=== PATIENT | female | born 1960 | race Caucasian/White ===

== ENCOUNTER 2019-01-03 10:44 | Observation (INO) | payer OTHER ==
--- NOTE | 2019-01-03 12:02 | ED ---
Shortness of Breath - HPI Summary HPI Summary: Patient is a 58 y/o F presenting to [facility] with complaints of SOB for the past three weeks with a recent exacerbation of her SOB. She states that exertion worsens her SOB. She also notes that she had "pain in my lungs" with inhalation. Patient went to be evaluated by a provider a few weeks ago. She was prescribed Abx and inhaler. Her pain is not as severe as initially, but SOB is worse. Swelling in legs are denied. She had travelled four hours from [place] to [place] yesterday, 01/02/19. Sx had started before this trip. PMHx of depression is noted. Patient had been started on lithium when Sx onset. She had stopped taking lithium yesterday, 01/02/19. Patient had two blood tests for her lithium levels which were noted to be WNL. In room, vitals are pulse 95, o2 99, BP 160/94. Home medications and allergies are reviewed. - History of Current Complaint Chief Complaint: EDShortnessOfBreath Time Seen by Provider: 01/03/19 11:39 Hx Obtained From: Patient Onset/Duration: Lasting Weeks, Still Present, Worse Since Dyspnea At: Exertion Aggravating Factors: Other - inhalation produces pain Associated Signs & Symptoms: Negative - Allergy/Home Medications Allergies/Adverse Reactions: Allergies Allergy/AdvReac Type Severity Reaction Status Date / Time No Known Allergies Allergy Verified 01/03/19 10:50 PMH/Surg Hx/FS Hx/Imm Hx Sensory History: Denies: Hx Legally Blind, Hx Deafness Opthamlomology History: Denies: Hx Legally Blind EENT History: Denies: Hx Deafness Psychiatric History: Reports: Hx Depression - Immunization History Date of Influenza Vaccine: 11/28/2018 Immunizations Up to Date: Yes Infectious Disease History: No Infectious Disease History: Denies: Traveled Outside the [place] in Last 30 Days - Family History Known Family History: Negative: Respiratory Disease - Social History Alcohol Use: Rare Substance Use Type: Reports: None Smoking Status (MU): Never Smoked Tobacco Review of Systems Respiratory: Other - "pain in my lungs" with inhalation Positive: Shortness Of Breath Negative: Edema All Other Systems Reviewed And Are Negative: Yes Physical Exam - Summary Physical Exam Summary: Appearance: The patient is well-nourished in no acute distress and in no acute pain. Skin: The skin is warm and dry, and skin color reflects adequate perfusion. HEENT: The head is normocephalic and atraumatic. The pupils are equal and reactive. The conjunctivae are clear and without drainage. Nares are patent and without drainage. Mouth reveals moist mucous membranes, and the throat is without erythema and exudate. The external ears are intact. The ear canals are patent and without drainage. The tympanic membranes are intact. Neck: The neck is supple with full range of motion and non-tender. There are no carotid bruits. There is no neck vein distension. Respiratory: Chest is non-tender. Lungs are clear to auscultation and breath sounds are symmetrical and equal. Cardiovascular: Heart is regular rate and rhythm. There is no murmur or rub auscultated. There is no peripheral edema and pulses are symmetrical and equal. Abdomen: The abdomen is soft and non-tender. There are normal bowel sounds heard in all four quadrants and there is no organomegaly palpated. Musculoskeletal: There is no back tenderness noted. Extremities are non-tender with full range of motion. There is good capillary refill. There is no peripheral edema or calf tenderness elicited. Neurological: Patient is alert and oriented to person, place and time. The patient has symmetrical motor strength in all four extremities. Cranial nerves are grossly intact. Deep tendon reflexes are symmetrical and equal in all four extremities. Psychiatric: The patient has an appropriate affect and does not exhibit any anxiety or depression. Triage Information Reviewed: Yes Vital Signs On Initial Exam: Initial Vitals Temp Pulse Resp BP Pulse Ox 98.1 F 112 16 154/108 92 01/03/19 10:47 01/03/19 10:47 01/03/19 10:47 01/03/19 10:47 01/03/19 10:47 Vital Signs Reviewed: Yes Procedures - Sedation Patient Received Moderate/Deep Sedation with Procedure: No Diagnostics - Vital Signs Vital Signs Temp Pulse Resp BP Pulse Ox 01/03/19 10:47 98.1 F 112 16 154/108 92 - Laboratory Result Diagrams: 01/03/19 12:07 01/03/19 12:07 Lab Statement: Any lab studies that have been ordered have been reviewed, and results considered in the medical decision making process. - CT CTA CHEST/THORAX CT Interpretation Completed By: Radiologist Summary of CT Findings: IMPRESSION: 1. MULTIPLE BILATERAL PULMONARY EMBOLI. 2. ECTASIA OF THE ASCENDING THORACIC AORTA.. THIS REPORT WAS REVIEWED BY DR. ZAMORA. - EKG 1235 Cardiac Rate: NL - rate of 96 BPM EKG Rhythm: Sinus Rhythm ST Segment: Normal Ectopy: None Summary of EKG Findings: EKG showed NSR with rate of 96 BPM, normal ST, no ectopy, no STEMI. This EKG was reviewed and interpreted by Dr. Zamora. Re-Evaluation - Re-Evaluation First Eval Re-Evaluation Time: 13:22 Comment: Results of bloodwork and CTA were discussed. Patient is agreeable with admission. Course/Dx - Course Course Of Treatment: Ms. Evans presented with a worrisome story for pulmonary embolism. A couple weeks ago she had some pleuritic chest pain with some mild shortness of breath. Over the last 2 weeks she has had a decrease in the pain but the shortness of breath has increased. Currently she feels fine when she is at rest but if she gets up and moves around she feels short of breath. She was nontoxic in appearance with stable vitals aside from borderline tachycardic. CTA of her chest did reveal bilateral pulmonary emboli and the hospitalist service was contacted for admission. She was bolused with heparin and a heparin drip was begun in the emergency department. - Diagnoses Provider Diagnoses: Multiple pulmonary emboli - Physician Notifications Discussed Care of Patient With: Demian Hoff Time Discussed With Above Provider: 13:41 Instructed by Provider To: Other - 1315 - Results of CTA were discussed over the phone with Dr. Rosas. 1341 - Patient's case was discussed with Dr. Hoff, Dr. Hoff accepts for admission - Critical Care Time Critical Care Time: 30-74 min - 30 minutes CCT Discharge ED - Sign-Out/Discharge Documenting (check all that apply): Patient Departure - admit - Discharge Plan Condition: Stable Disposition: ADMITTED TO [facility] - Billing Disposition and Condition Condition: STABLE Disposition: Admitted to [facility] - Attestation Statements Document Initiated by Scribe: Yes Documenting Scribe: MONO SAMAYOA Provider For Whom Scribe is Documenting (Include Credential): ETHEL ZAMORA MD Scribe Attestation: MONO Galaviz, scribed for ETHEL ZAMORA MD on 01/03/19 at 1554. Scribe Documentation Reviewed: Yes Provider Attestation: The documentation as recorded by the scribe, MONO SAMAYOA accurately reflects the service I personally performed and the decisions made by me, ETHEL ZAMORA MD Status of Scribe Document: Viewed
[2019-01-03 12:18] LABS: ABS Basophils 0.1 10^3/ul (0-0.2); ABS Eosinophils 0.3 10^3/ul (0-0.6); ABS Lymphocytes 2.4 10^3/ul (1.0-4.8); ABS Monocytes 0.5 10^3/ul (0-0.8); ABS Neutrophils 3.6 10^3/ul (1.5-7.7); Eosinophil % 4.7 %; Hematocrit 40 % (35-47); Hemoglobin 13.4 g/dL (12.0-16.0); Mean Corpuscular HGB Conc 34 g/dL (31-36); Mean Corpuscular Hemoglobin 29 pg (27-31); Mean Corpuscular Volume 86 fL (80-97); Platelet Count 277 10^3/uL (150-450); Red Blood Count 4.66 10^6 /uL (3.70-4.87); Red Cell Distribution Width 14 % (10-15); White Blood Count 6.9 10^3/uL (3.5-10.8)
[2019-01-03 12:37] LABS: Albumin 4.2 g/dL (3.2-5.2); Albumin/Globulin Ratio 1.4 (1-3); BUN/Creatinine Ratio 19.8 (8-20); C Reactive Protein 15.98 mg/L (<8.01); Calcium 9.5 mg/dL (8.6-10.3); EGFR African American 82.6 (>60); EGFR Non-African American 68.3 (>60); Globulin 3.1 g/dL (2-4); Potassium 4.2 mmol/L (3.5-5.0); Total Bilirubin 0.5 mg/dL (0.2-1.0); Total Protein 7.3 g/dL (6.4-8.9)
[2019-01-03] MEDS ORDERED: Iohexol 350* (CONTRAST) 500 ML MDV IV ONE (12:42)
[2019-01-03] MEDS ORDERED: Heparin DRIP 25,000 UNITS(*) 25,000 UNITS/500 ML BAG IV SCH (13:30)
[2019-01-03 14:30] LABS: INR 1.13 (0.82-1.09)
[2019-01-03] MEDS ORDERED: Acetaminophen TAB* 325 MG PO PRN (14:30)
--- NOTE | 2019-01-03 14:39 | ADMNOTE ---
Subjective Date of Service: 01/03/19 Interval History: HISTORY AND PHYSICAL EXAM: Allergies Allergy/AdvReac Type Severity Reaction Status Date / Time No Known Allergies Allergy Verified 01/03/19 10:50 Home medications: none HPI: The patient noticed SCHULTE about 3 weeks ago. She had been going to the gym several times a week but stopped 2 weeks ago. Her PMD prescribed an antibiotic and an inhaler without any benefit noted by the patient. She and her drove to [place] for [place] Parent's Weekend to see their daughter who is a freshman. The trip takes 4 hours. No other recent travel. She is alone at home and does some writing, sometimes sitting a long time. No cough, chest pain , leg pain or swelling. Family History: Unchanged from Admission - Both parents of dementia. One biologic sister who is [employer]. Social History: Unchanged from Admission - Lives with her who is her SDM. Smokes 1/3 of a cigaretter about every 3 weeks. No alcohol abuse. Past Medical History: Unchanged from Admission - Frequent migraines, hx depression. 2 children. 6 epdurals for back pain. Uterin ablation. Review of Systems - Measurements Intake and Output: Intake and Output Last 24 Hours 01/01/19 01/02/19 01/03/19 01/04/19 06:59 06:59 06:59 06:59 Weight 175 lb - Review of Systems Constitutional Symptoms: Negative: Weight Gain, Weight Loss, Weakness, Fatigue, Fever, Night Sweats, Unexplained Falls, Other Dermatology: Positive: Normal HEENT: Positive: Normal Eyes: Positive: Normal Thyroid: Positive: Normal Pulmonary: Positive: Normal Cardiology: Positive: Normal Gastroenterology: Positive: Normal Genital - Urinary: Positive: Normal Genitourinay - Female: Positive: Menopause Musculoskeletal: Positive: Low Back Pain Endocrinology: Positive: Normal Hematologic/Lymphatic: Negative: Anemia, Easy Bruising, Hx Leukemia, Hx Lymphoma, Use of Anticoagulant, Use of Antiplatelet Drugs, Other Neurology: Positive: Migraines Psychiatry: Positive: Depression, Anxiety Allergic/Immunologic: Negative: Hx Anaphylaxis, Hx Angioedema, Hx Environmental, Hx Seasonal, Asthma, Hx HIV, Immunocompromise, Swollen Glands LymphNodes, Other Objective Active Medications: Acetaminophen (Tylenol Tab*) 650 mg PO Q4H PRN PRN Reason: PAIN Heparin Sodium (Porcine) (Heparin Vial(*)) 5,950 units IV .PER PROTOCOL [facility] Stop: 01/03/19 21:00 Heparin Sodium/Dextrose (Heparin Drip 25,000 Units(*)) 25,000 units in 500 mls @ 0 mls/hr IV PER RATE [facility]; Protocol Stop: 01/03/19 21:00 Last Admin: 01/03/19 14:06 Dose: 28 mls/hr Rivaroxaban (Xarelto(*)) 15 mg PO BID [facility] Vital Signs - 8 hr 01/03/19 10:47 Temperature 98.1 F Pulse Rate 112 Respiratory 16 Rate Blood Pressure 154/108 (mmHg) O2 Sat by Pulse 92 Oximetry Oxygen Devices in Use Now: None Appearance: Alert, partly up on ED stretcher. In fair spirits, somewhat anxious, otherwise looks comfortable. Respiratory: Symmetrical Chest Expansion and Respiratory Effort, Clear to Auscultation, Clear to Percussion Cardiovascular: NL Sounds; No Murmurs; No JVD, RRR, No Edema, - Abdominal: NL Sounds; No Tenderness; No Distention, No Hepatosplenomegaly, - Extremities: No Edema, No Clubbing, Cyanosis, - Skin: No Rash or Ulcers, - - hemangioma midline upper back about 3-4 mm diameter. Neurological: Alert and Oriented x 3, NL Sensation Result Diagrams: 01/03/19 12:07 01/03/19 12:07 Assess/Plan/Problems-Billing Assessment: - Patient Problems (1) Pulmonary embolism Current Visit: Yes Status: Acute Code(s): I26.99 - OTHER PULMONARY EMBOLISM WITHOUT ACUTE COR PULMONALE SNOMED Code(s): 53291633 Comment: Initiating factors not clear. Sx's started before her trip to [place], suspect she had had recurring emboli for several weeks. US to see if any source in legs, although clinically they are completely normal. Convert to rivaroxaban 01/03 9 PM, echo 01/04. I would reserve hypercoag wup to her providers in [place] so they can fup on the results. (2) Migraine headache Current Visit: Yes Status: Acute Code(s): G43.909 - MIGRAINE, UNSP, NOT INTRACTABLE, WITHOUT STATUS MIGRAINOSUS SNOMED Code(s): 56475776 Comment: Occ takes sumatriptan. (3) Depression Current Visit: Yes Status: Acute Code(s): F32.9 - MAJOR DEPRESSIVE DISORDER , SINGLE EPISODE, UNSPECIFIED SNOMED Code(s): 38287195 Comment: Finished tapering off lithium 01/02/19. It and other antidepressants made her anxious. She has used quetiapine in the past also for depression.
[2019-01-03] MEDS ORDERED: Heparin VIAL(*) 5000 UNITS/ML VIAL (FIVE THOUSAND) IV SCH ×2 (15:00→18:00)
[2019-01-03 15:41] LABS: Activated Partial Thrombo Time 39.3 seconds (26.0-38.0)
[2019-01-03] MEDS ORDERED: SUMAtriptan TAB* 50 MG PO PRN (17:30)
[2019-01-03] MEDS: QUEtiapine TAB* 25 MG PO SCH (20:05)
[2019-01-03] MEDS: Rivaroxaban TAB(*) 15 MG PO SCH (20:06)
[2019-01-03] MEDS: clonazePAM TAB(*) 0.5 MG PO SCH (20:08)
[2019-01-03] MEDS ORDERED: SUMAtriptan TAB* 50 MG PO SCH (21:00)
[2019-01-04 06:53] LABS: ABS Basophils 0.1 10^3/ul (0-0.2); ABS Eosinophils 0.2 10^3/ul (0-0.6); ABS Lymphocytes 2.8 10^3/ul (1.0-4.8); ABS Monocytes 0.6 10^3/ul (0-0.8); ABS Neutrophils 4.6 10^3/ul (1.5-7.7); Hematocrit 39 % (35-47); Hemoglobin 12.9 g/dL (12.0-16.0); Lymphocyte % 33.7 %; Mean Corpuscular HGB Conc 33 g/dL (31-36); Mean Corpuscular Hemoglobin 29 pg (27-31); Mean Corpuscular Volume 86 fL (80-97); Mean Platelet Volume 8.9 fL (7.4-10.4); Nucleated Red Blood Cells % 0.1; Platelet Count 290 10^3/uL (150-450); Red Blood Count 4.51 10^6 /uL (3.70-4.87); Red Cell Distribution Width 14 % (10-15); White Blood Count 8.3 10^3/uL (3.5-10.8)
[2019-01-04] MEDS: Rivaroxaban TAB(*) 15 MG PO SCH (08:09)
[2019-01-04] MEDS: clonazePAM TAB(*) 0.5 MG PO SCH (08:09)
[2019-01-04] MEDS: QUEtiapine TAB* 25 MG PO SCH (08:12)
--- NOTE | 2019-01-04 08:50 | ECHO ---
*[facility]* [place] [address] Fax #: [phone] Transthoracic Echocardiogram Patient: Catalina Evans : 1960 Study Date: 01/04/2019 Age: 58 Gender: F HR: 95 bpm Height: 70 in /177.8 cm BSA: 1.97 m^2 Weight: 174.6 lb /79.4 kg BMI: 25.1 kg/m^2 *[employer]ch[employer]ising [employer]ship: * Dunia Aguirre [facility] *Referring Physician: * Demian Hoff *Reading Physician: * Eriberto Phillips MD Indications: SOB. Pulmonary embolism. History: Risk factors: Current tobacco use. Conclusions Summary: - Left ventricle: The cavity size is normal. Wall thickness is mildly increased. Systolic function is normal. The estimated ejection fraction is 55-60%. Wall motion is normal; there are no regional wall motion abnormalities. - Right ventricle: The cavity size is normal. Systolic function is normal. - Left atrium: The atrium is normal in size. - Pulmonary arteries: Systolic pressure can not be accurately estimated. - No significant valvular abnormalities noted. Recommendations: None prior for comparison. Study data: Transthoracic echocardiogram. Procedure: Transthoracic echocardiography was performed. Image quality was good. Complete 2D, spectral Doppler, and color flow Doppler. Location: Bedside. Patient status: Inpatient. Patient room number: 453. Rhythm: Normal sinus rhythm. Findings Left ventricle: The cavity size is normal. Wall thickness is mildly increased. Systolic function is normal. The estimated ejection fraction is 55-60%. Wall motion is normal; there are no regional wall motion abnormalities. Doppler parameters are consistent with abnormal left ventricular relaxation (grade 1 diastolic dysfunction). Right ventricle: The cavity size is normal. Systolic function is normal. Left atrium: The atrium is normal in size. Right atrium: The atrium is normal in size. Mitral valve: The leaflets are mildly thickened. There is no evidence of stenosis. There is trace regurgitation. Aortic valve: The valve is trileaflet. The leaflets are mildly thickened. There is no evidence of stenosis. There is trace regurgitation. Tricuspid valve: The leaflets are normal thickness. There is no evidence of stenosis. There is trace regurgitation. Pulmonic valve: The leaflets are normal thickness. There is no evidence of stenosis. There is trace regurgitation. Aorta: Aortic root: The aortic root is appears normal. Ascending aorta: The ascending aorta is appears normal. Aortic arch: The aortic arch is appears normal. Pericardium: A prominent pericardial fat pad is present. The amount of pericardial fluid appears to be at the upper limits of normal. Pulmonary arteries: The main pulmonary artery is normal-sized. Systolic pressure can not be accurately estimated. Systemic veins: Inferior vena cava: The vessel is normal in size. There is (>= 50%) respiratory change in the IVC dimension. Measurements Left ventricle Value Ref Right atrium continued Value Ref VESTA, LAX 4.3 cm 3.8 - 5.2 SI dim, ES, A4C 4.8 cm 3.4 - 5.3 ESD, LAX 3.0 cm 2.2 - 3.5 Estimated RAP 3 mm Hg --------- FS, LAX 31 % 27 - 45 PW, ED, LAX (H) 1.1 cm 0.6 - 0.9 Aortic valve Value Ref FS 31 % 27 - 45 Kaitlin diam, ED 2.1 cm --------- PW, ED (H) 1.1 cm 0.6 - 0.9 Peak v, S 1.12 m/sec --------- PW/ID, ED 0.25 VTI, S 21.0 cm --------- E', lat kaitlin, TDI (L) 6.6 cm/sec >=10.0 Mean grad, S 3.0 mm Hg -- ------- E/e', lat kaitlin, 8 Peak grad, S 3.0 mm Hg ----- ---- TDI LVOT/AV, VTI ratio 0.76 --------- E', med kaitlin, TDI (L) 6.5 cm/sec >=7.0 E/e', med kaitlin, 8 Mitral valve Value Ref TDI Peak E 0.54 m/sec --------- E', avg, TDI 6.6 cm/sec Peak A 0.75 m/sec ----- ---- E/e', avg, TDI 8 <=14 Decel time 109 ms -- ------- Peak E/A ratio 0.7 --------- LVOT Value Ref Peak joyce, S 0.97 m/sec Pulmonic valve Value Ref VTI, S 16.0 cm Peak v, S 0.96 m/sec --------- Mean grad, S 2 mm Hg Peak grad, S 4.0 mm Hg --------- Ventricular septum Value Ref Aortic root Value Ref IVS, ED (H) 1.1 cm 0.6 - 0.9 Root diam 3.1 cm <4.1 Root max diam, ED 3.1 cm <4.1 Right ventricle Value Ref VESTA, LAX 4.0 cm Ascending aorta Value Ref VESTA minor ax, (H) 4.6 cm 1.9 - 3.5 AAo AP diam, S 3.4 cm --------- A4C mid Aortic arch Value Ref Left atrium Value Ref Arch diam 2.5 cm --------- AP dim, ES 3.50 cm 2.70 - 3.80 Decending aorta Value Ref ML dim, A4C 4.2 cm Ashley peak joyce 0.85 m/sec --------- SI dim, A4C 4.4 cm Vol/bsa, ES, 1-p 23 ml/m^2 11 - 40 Inferior vena cava Value Ref A4C Diam 1.1 cm --------- Vol/bsa, ES, A/L 29 ml/m^2 16 - 34 Right atrium Value Ref SI dim, ES 4.8 cm 3.4 - 5.3 ML dim, ES, A4C 4.2 cm 2.6 - 4.4 Legend: (L) and (H) laury values outside specified reference range. Prepared and electronically signed by Eriberto Phillips MD 01/04/2019 08:50
--- NOTE | 2019-01-04 11:07 | DS ---
DISCHARGE SUMMARY: DATE OF ADMISSION: DATE OF DISCHARGE: 01/04/19 HISTORY OF PRESENT ILLNESS: This 58-year-old woman presented with dyspnea on exertion, this really started about 3 weeks ago. It was somewhat episodic. Sometimes she felt she had fairly decent exercise tolerance, but sometimes she will get very out of breath climbing a hill or some other activity that she would not expect to give her so much trouble. She had no chest pain. The rest of the history is detailed in admission note. CTA showed multiple bilateral pulmonary emboli. Ultrasound of the leg showed no deep venous thrombosis. 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 The patient initially got some intravenous heparin and was changed to rivaroxaban 15 mg b.i.d. She received two doses before she left the hospital. I noted her troponin was 0.00 and her BNP was 14. Echocardiogram was completely unremarkable. The patient was given 40 more tablets of rivaroxaban 15 mg to take twice a day and was instructed to see her primary doctor this week and get a prescription for 20 mg once daily to start when she finishes her 15 mg dose. The patient was told she would need a hypercoagulable workup and this could be done at her local medical community. DISCHARGE DIAGNOSES: 1. Multiple pulmonary emboli. 2. History of migraine headaches. 3. History of depression. 4. Anxiety. DISCHARGE MEDICATIONS: 1. Acetaminophen 650 mg every 4 hours p.r.n. 2. Rivaroxaban 15 mg b.i.d. for 21 days to be followed by 20 mg daily. 3. Sumatriptan 50 mg as needed. 4. Quetiapine 25 mg b.i.d. 5. Claritin 10 mg daily. 6. Clonazepam 0.25 mg b.i.d. CONDITION ON DISCHARGE: Stable. DISPOSITION ON DISCHARGE: Discharged home. [id number]/[facility] #: [id number] MTDD
[2019-01-04 16:03] VITALS: BP 142/86
== END 2019-01-04 11:25 | disposition home or self-care (01) ==
LOC: ED 10:44 → MEDTELE 15:22
PROVIDERS: ADMIT Internal Medicine; ATTEND Internal Medicine
DX: I26.99 Other pulmonary embolism without acute cor pulmonale (principal); G43.909 Migraine, unspecified, not intractable, without status migrainosus; I77.810 Thoracic aortic ectasia; F32.9 Major depressive disorder, single episode, unspecified; R06.02 Shortness of breath; F41.9 Anxiety disorder, unspecified; Z79.899 Other long term (current) drug therapy; Z79.01 Long term (current) use of anticoagulants
CPT/HCPCS: 36415; 71275; 80053; 83605; 83880; 84484; 85025; 85610; 85730; 86140; 93005; 93306; 93970; 96372; 99283; A9270-GY; G0378; J1644; Q9967